=== PATIENT | female | born 1990 | race Hispanic/Latino ===

== ENCOUNTER 2021-03-26 13:39 | Emergency (ER) | payer SELFPAY ==
[~2021-03-26] VITALS: Ht 162.6 cm; Wt 76.3 kg
[2021-03-26] MEDS ORDERED: DIFLUCAN150 MG PO (14:09)
[2021-03-26] MEDS ORDERED: BACTRIM DS TAB1 EACH PO (14:09)
[2021-03-26] MEDS ORDERED: ZOFRAN4 MG PO (14:09)
== END 2021-03-26 14:18 | disposition home or self-care (01) ==
LOC: FSED 13:43
DX: N76.0 Acute vaginitis (principal); N39.0 Urinary tract infection, site not specified
CPT/HCPCS: 81003; 81025; 99283

== ENCOUNTER 2023-11-17 13:56 | Emergency (ER) | payer MEDICARE ==
[~2023-11-17] VITALS: Ht 162.6 cm; Wt 77.1 kg
[~2023-11-17 13:56] MED LIST: BACTRIM DS TAB1 EACH PO; DIFLUCAN150 MG PO; ZOFRAN4 MG PO
[2023-11-17 14:00] VITALS: O2SAT 99
[2023-11-17 14:22] LABS: BASOPHILS % 0.3 % (0.0-1.0); EOSINOPHILS # (AUTO) 0.4 (0.0-0.4); EOSINOPHILS % 2.7 % (0.0-6.0); HEMATOCRIT 38.1 % (34.2-44.1); HEMOGLOBIN 13.1 g/dL (12.0-16.0); LYMPHOCYTES # (AUTO) 2.5 (1.0-3.2); MEAN CORPUSCULAR HGB CONC 34.4 g/dL (31-35); MEAN CORPUSCULAR VOLUME 84.3 fL (81-99); MONOCYTES # (AUTO) 0.9 (0.2-0.8); MONOCYTES % 6.8 % (4.4-11.3); NEUTROPHILS # (AUTO) 9.3 (2.1-6.9); NEUTROPHILS % 70.7 % (38.7-80.0); PLATELET COUNT 260 x10e3/uL (140-360); RED BLOOD COUNT 4.52 x10e6/uL (3.6-5.1); RED CELL DISTRIBUTION WIDTH 12.9 % (11.7-14.4); WHITE BLOOD COUNT 13.17 x10e3/uL (4.8-10.8)
[2023-11-17 14:41] LABS: ALANINE AMINOTRANSFERASE 24 IU/L (0-55); ALBUMIN 3.9 g/dL (3.5-5.0); ALBUMIN/GLOBULIN RATIO 1.1 (0.8-2.0); ALKALINE PHOSPHATASE 82 IU/L (40-150); ANION GAP 14.5 mmol/L (8-16); BILIRUBIN,TOTAL 0.4 mg/dL (0.2-1.2); BLOOD UREA NITROGEN 9 mg/dL (7-26); BUN/CREATININE RATIO 14 (6-25); CALCIUM 8.7 mg/dL (8.4-10.2); CARBON DIOXIDE 22 mmol/L (22-29); CHLORIDE 104 mmol/L (98-107); CREATININE, SERUM 0.66 mg/dL (0.57-1.11); EST GLOMERULAR FILTRATION RATE 119 ML/MIN (>=60); GLUCOSE 105 mg/dL (74-118); POTASSIUM 3.5 mmol/L (3.5-5.1); SODIUM 137 mmol/L (136-145); TOTAL PROTEIN 7.5 g/dL (6.5-8.1)
[2023-11-17 15:03] LABS: HCG,QUANTITATIVE 22338.96 mIU/mL (0-10)
== END 2023-11-17 19:08 | disposition home or self-care (01) ==
LOC: ER 14:03
DX: O46.91 Antepartum hemorrhage, unspecified, first trimester (principal)
CPT/HCPCS: 36415; 76805; 76817; 80053; 83518; 84702; 85025; 86900; 87070; 99284